=== PATIENT | female | born 1945 | race Asian ===

== ENCOUNTER 2018-08-29 12:05 | Emergency (ER) | payer MEDICARE, OTHER ==
[2018-08-29 13:13] LABS: URINE BLOOD (Dip) POC 3+ (NEGATIVE); URINE GLUCOSE (Dip) POC Negative (NEGATIVE); URINE KETONES (Dip) POC Negative (NEGATIVE); URINE LEUKOCYTE EST (Dip) POC 1+ (NEGATIVE); URINE NITRITE (Dip) POC Negative (NEGATIVE); URINE TOTAL PROTEIN POC Negative (NEGATIVE)
== END 2018-08-29 16:50 | disposition home or self-care (01) ==
LOC: E/R 12:05
DX: N39.0 Urinary tract infection, site not specified (principal)
CPT/HCPCS: 81003; 99282